=== PATIENT | female | born 1995 | race Caucasian/White ===

== ENCOUNTER 2021-01-25 08:12 | Outpatient (CLI) | payer BC ==
--- NOTE | 2021-01-25 13:54 | NM ---
Nuclear medicine gastric emptying scan: 01/25/2021 HISTORY: 25-year-old female with epigastric pain TECHNIQUE: 2 mCi technetium 99m sulfur colloid served in scrambled legs meal. Anterior scintigraphy of abdomen intermittently obtained for several hours. Counts obtained over the stomach and used to plot time-activity curve. FINDINGS: Time: Percentage emptyin minutes: 49% 66 minutes: 76% 122 minutes: 92% 175 minutes: 96% 250 minutes: 100% IMPRESSION: Normal
== END 2021-01-25 08:13 | disposition home or self-care (01) ==
LOC: NM 08:12
PROVIDERS: ATTEND Physician Assistant Medical
DX: I49.8 Other specified cardiac arrhythmias (principal); R10.13 Epigastric pain; R11.0 Nausea; R68.81 Early satiety
CPT/HCPCS: 78264; A9541

== ENCOUNTER 2021-03-09 07:33 | Outpatient (CLI) | payer BC ==
[2021-03-09] MEDS ORDERED: Magnevist 469MG/ML 20 ML VIAL ONE (12:27)
== END 2021-03-09 07:34 | disposition home or self-care (01) ==
LOC: BICMRI 07:33
PROVIDERS: ATTEND Internal Medicine Gastroenterology
DX: R10.13 Epigastric pain (principal); R14.2 Eructation; Z90.49 Acquired absence of other specified parts of digestive tract
CPT/HCPCS: 74183; A9579

== ENCOUNTER → 2021-11-12 | Day surgery (SDC) | payer BC | LOC: SPEC 08:33 | PROVIDERS: ATTEND Family Medicine | PROC: 02HV33Z Insertion of Infusion Device into Superior Vena Cava, Percutaneous Approach (ICD-10-PCS; principal; 2021-11-12) | DX: A69.20 Lyme disease, unspecified (principal); Z79.2 Long term (current) use of antibiotics | CPT/HCPCS: 36569; C1751 ==

== ENCOUNTER 2021-11-14 19:11 | Emergency (ER) | payer BC ==
[~2021-11-14 19:11] MED LIST: Iopamidol 370 76% 100 ML VIAL ONE
[2021-11-14 19:53] LABS: BHCG - Serum Negative (NEGATIVE); Pregs Control Background? CLEAR/WHITE (CLR/WHITE); Pregs Control Bar Appear? YES (CONTROL BAR)
[2021-11-14 19:54] LABS: #Eosinphils 0.4 thou/uL (0.0-0.7); #Lymphocytes 2.8 thou/uL (1.20-3.40); #Monocytes 0.6 thou/uL (0.11-0.59); #Neutrophils 4.3 thou/uL (1.40-6.50); %Basophils 0.5 % (0.0-1.0); %Eosinophils 4.9 % (0.0-10.0); %Lymphocytes 34.6 % (21.0-51.0); %Monocytes 6.9 % (0.0-10.0); %Neutrophils 53.1 % (42.0-75.0); Hemoglobin 13.6 g/dL (12.0-16.0); Mean Corpuscular HGB CONC 34.6 g/dL (32.0-36.0); Mean Corpuscular Hemoglobin 31.7 pg (27.0-31.0); Mean Corpuscular Volume 91.4 fL (78.0-98.0); Mean Platelet Volume 8.3 fL (7.4-10.4); Platelet Count 259 thou/uL (130-400); RBC Distribution Width 11.7 % (11.5-14.5); Red Blood Cell (RBC) Count 4.31 mill/uL (4.20-5.40); White Blood Cell (WBC) Count 8.1 thou/uL (4.8-10.8)
[2021-11-14 20:12] LABS: ALT (SGPT) 10 U/L (8-55); AST (SGOT) 15 U/L (5-34); Albumin 4.1 g/dL (3.5-5.0); Alkaline Phosphatase 48 U/L (40-110); Anion Gap 14 mmol/L (10-20); BUN (Urea Nitrogen) 5 mg/dL (7.0-18.7); Bilirubin, Total 0.2 mg/dL (0.2-1.2); Calc. Creatinine Clearance 0 mL/min (70-130); Calcium 9.3 mg/dL (7.8-10.44); Carbon Dioxide 22 mmol/L (22-29); Chloride 108 mmol/L (98-107); Globulin 3.5 g/dL (2.4-3.5); Glucose 95 mg/dL (70-105); Lipase 29 U/L (8-78); Potassium 3.7 mmol/L (3.5-5.1); Protein, Total 7.6 g/dL (6.0-8.3); Sodium 140 mmol/L (136-145)
== END 2021-11-14 23:06 | disposition home or self-care (01) ==
LOC: ERS 19:11
DX: R07.81 Pleurodynia (principal); R10.13 Epigastric pain; G43.909 Migraine, unspecified, not intractable, without status migrainosus; I95.9 Hypotension, unspecified
CPT/HCPCS: 71045; 71275; 80053; 83690; 84484; 84703; 85025; 85379; 93005; Q9967

== ENCOUNTER → 2021-11-15 | Day surgery (SDC) | payer BC ==
[~2021-11-15] MED LIST changes: +Heparin 1,000 UNITS/ML VIAL ONE; -Iopamidol 370 76% 100 ML VIAL ONE
== END ==
LOC: SPEC 09:47
PROVIDERS: ATTEND Family Medicine
PROC: 0JPT3VZ Removal of Infusion Pump from Trunk Subcutaneous Tissue and Fascia, Percutaneous Approach (ICD-10-PCS; principal; 2021-11-15)
PROC: 0JH63VZ Insertion of Infusion Pump into Chest Subcutaneous Tissue and Fascia, Percutaneous Approach (ICD-10-PCS; principal; 2021-11-15)
DX: T82.524A Displacement of infusion catheter, initial encounter (principal)
CPT/HCPCS: 36569; C1751

== ENCOUNTER 2021-12-06 15:53 | Emergency (ER) | payer BC ==
[2021-12-06] MEDS ORDERED: Ibuprofen 800 MG TAB ONE (19:35)
[2021-12-06] MEDS ORDERED: Ondansetron ODT 4 MG TAB ONE (19:35)
== END 2021-12-06 21:30 | disposition home or self-care (01) ==
LOC: ERS 15:53
DX: I82.622 Acute embolism and thrombosis of deep veins of left upper extremity (principal); G43.909 Migraine, unspecified, not intractable, without status migrainosus; Z79.899 Other long term (current) drug therapy
CPT/HCPCS: Q0162

== ENCOUNTER → 2021-12-07 | Day surgery (SDC) | payer BC | LOC: SPEC 12:27 | PROVIDERS: ATTEND Family Medicine | PROC: 05HY33Z Insertion of Infusion Device into Upper Vein, Percutaneous Approach (ICD-10-PCS; principal; 2021-12-07) | DX: A69.20 Lyme disease, unspecified (principal); T82.898A Other specified complication of vascular prosthetic devices, implants and grafts, initial encounter; Y81.1 Therapeutic (nonsurgical) and rehabilitative general- and plastic-surgery devices associated with adverse incidents | CPT/HCPCS: 36569; 36589; C1751; J1644 ==

== ENCOUNTER 2021-12-17 21:29 | Emergency (ER) | payer BC ==
[~2021-12-17 21:29] MED LIST changes: -Heparin 1,000 UNITS/ML VIAL ONE; +Iopamidol-370 76% 500 ML 1 ML ONE
[2021-12-17 22:24] LABS: #Basophils 0.1 thou/uL (0.0-0.2); #Eosinphils 0.5 thou/uL (0.0-0.7); #Lymphocytes 2.6 thou/uL (1.20-3.40); #Monocytes 0.4 thou/uL (0.11-0.59); #Neutrophils 3.1 thou/uL (1.40-6.50); %Eosinophils 7.1 % (0.0-10.0); %Lymphocytes 38.7 % (21.0-51.0); %Monocytes 6.7 % (0.0-10.0); %Neutrophils 46.5 % (42.0-75.0); Mean Corpuscular HGB CONC 34.4 g/dL (32.0-36.0); Mean Corpuscular Hemoglobin 31.6 pg (27.0-31.0); Mean Corpuscular Volume 91.9 fL (78.0-98.0); Mean Platelet Volume 8.2 fL (7.4-10.4); Platelet Count 234 thou/uL (130-400); RBC Distribution Width 11.5 % (11.5-14.5); Red Blood Cell (RBC) Count 4.13 mill/uL (4.20-5.40); White Blood Cell (WBC) Count 6.6 thou/uL (4.8-10.8)
[2021-12-17 22:44] LABS: ALT (SGPT) 75 U/L (8-55); AST (SGOT) 57 U/L (5-34); Albumin 4.2 g/dL (3.5-5.0); Alkaline Phosphatase 41 U/L (40-110); Anion Gap 16 mmol/L (10-20); BUN (Urea Nitrogen) 7 mg/dL (7.0-18.7); Bilirubin, Total 0.2 mg/dL (0.2-1.2); Calc. Creatinine Clearance 0 mL/min (70-130); Carbon Dioxide 23 mmol/L (22-29); Chloride 108 mmol/L (98-107); Globulin 2.9 g/dL (2.4-3.5); Glucose 92 mg/dL (70-105); Potassium 3.8 mmol/L (3.5-5.1); Protein, Total 7.1 g/dL (6.0-8.3); Sodium 143 mmol/L (136-145)
== END 2021-12-18 00:24 | disposition home or self-care (01) ==
LOC: ERS 21:29
DX: R07.89 Other chest pain (principal); R03.0 Elevated blood-pressure reading, without diagnosis of hypertension; A69.20 Lyme disease, unspecified; Z79.899 Other long term (current) drug therapy
CPT/HCPCS: 36415; 71045; 71275; 80053; 84484; 85025; 85379; 93005; Q9967

== ENCOUNTER → 2021-12-19 | Day surgery (SDC) | payer BC | LOC: SPEC 13:32 | PROVIDERS: ATTEND Family Medicine | PROC: 02HV33Z Insertion of Infusion Device into Superior Vena Cava, Percutaneous Approach (ICD-10-PCS; principal; 2021-12-19) | DX: A69.20 Lyme disease, unspecified (principal); Z79.2 Long term (current) use of antibiotics | CPT/HCPCS: 36569; C1751 ==

== ENCOUNTER 2021-12-25 20:29 | Emergency (ER) | payer BC | END 2021-12-26 00:37 | disposition home or self-care (01) | LOC: ERS 20:29 | DX: Z71.1 Person with feared health complaint in whom no diagnosis is made (principal); R07.89 Other chest pain; M79.601 Pain in right arm | CPT/HCPCS: 71045; 93005; 93970 ==

== ENCOUNTER 2022-01-04 11:00 | Outpatient (CLI) | payer BC | END 2022-01-04 11:01 | disposition home or self-care (01) | LOC: ULT 11:00 | PROVIDERS: ATTEND Family Medicine | DX: T82.84 Pain due to cardiac and vascular prosthetic devices, implants and grafts (principal); A68.1 Tick-borne relapsing fever; Z79.2 Long term (current) use of antibiotics; T82.868A Thrombosis due to vascular prosthetic devices, implants and grafts, initial encounter ==

== ENCOUNTER 2022-04-26 07:35 | Outpatient (CLI) | payer BC | END 2022-04-26 07:36 | disposition home or self-care (01) | LOC: ULT 07:35 | PROVIDERS: ATTEND Family Medicine | DX: I74.9 Embolism and thrombosis of unspecified artery (principal) ==

== ENCOUNTER 2022-06-28 14:01 | Outpatient (CLI) | payer BC | END 2022-06-28 14:02 | disposition home or self-care (01) | LOC: BICULT 14:01 | DX: I74.9 Embolism and thrombosis of unspecified artery (principal); Z86.718 Personal history of other venous thrombosis and embolism ==

== ENCOUNTER 2024-02-06 16:34 | Emergency (ER) | payer BC, OTHER ==
[2024-02-06] MEDS ORDERED: Famotidine/PF 20 mg/2ml Vial ONE ×2 (17:44→17:46)
[2024-02-06] MEDS ORDERED: Pantoprazole 40 MG VIAL ONE (17:44)
[2024-02-06 19:58] LABS: #Eosinphils 0.3 thou/uL (0.0-0.7); #Monocytes 0.5 thou/uL (0.11-0.59); #Neutrophils 4.1 thou/uL (1.40-6.50); %Basophils 0.4 % (0.0-1.0); %Lymphocytes 38.9 % (21.0-51.0); %Monocytes 6.5 % (0.0-10.0); Hematocrit 40.2 % (36.0-47.0); Hemoglobin 13.5 g/dL (12.0-16.0); Mean Corpuscular HGB CONC 33.6 g/dL (32.0-36.0); Mean Corpuscular Hemoglobin 30.4 pg (27.0-31.0); Mean Corpuscular Volume 90.5 fl (78.0-98.0); Mean Platelet Volume 10.4 fL (7.4-10.4); Platelet Count 280 10x3/uL (130-400); RBC Distribution Width 12.7 % (11.5-14.5); Red Blood Cell (RBC) Count 4.44 mill/uL (4.20-5.40); White Blood Cell (WBC) Count 8.2 10x3/uL (4.8-10.8)
[2024-02-06 20:06] LABS: BHCG - Serum Negative (NEGATIVE); Pregs Control Background? CLEAR/WHITE (CLR/WHITE); Pregs Control Bar Appear? YES (CONTROL BAR)
[2024-02-06 20:18] LABS: ALT (SGPT) 10 U/L (8-55); AST (SGOT) 14 U/L (5-34); Albumin 4.2 g/dL (3.5-5.0); Alkaline Phosphatase 46 U/L (40-110); Anion Gap 13 mmol/L (10-20); BUN (Urea Nitrogen) 9 mg/dL (7.0-18.7); Bilirubin, Total 0.4 mg/dL (0.2-1.2); Calc. Creatinine Clearance 0 mL/min (70-130); Calcium 9.3 mg/dL (7.8-10.44); Carbon Dioxide 22 mmol/L (22-29); Chloride 108 mmol/L (98-107); Estimated GFR 118; Globulin 2.9 g/dL (2.4-3.5); Glucose 88 mg/dL (70-105); Lipase 27 U/L (8-78); Potassium 4.5 mmol/L (3.5-5.1); Protein, Total 7.1 g/dL (6.0-8.3); Sodium 138 mmol/L (136-145)
[2024-02-06 20:19] LABS: Troponin I 0.011 ng/mL (< 0.028)
== END 2024-02-06 21:10 | disposition home or self-care (01) ==
LOC: ERS 16:34
DX: R10.13 Epigastric pain (principal); R10.816 Epigastric abdominal tenderness; R07.9 Chest pain, unspecified; Z13.810 Encounter for screening for upper gastrointestinal disorder
CPT/HCPCS: 36415; 71045; 71260; 74177; 80053; 83690; 84484; 84703; 85025; 93005; 96374; 96375; C9113; S0028